=== PATIENT | female | born 1955 | race Two or more races ===

== ENCOUNTER 2017-09-30 13:57 | Emergency (ER) | payer SELFPAY ==
[2017-09-30 14:18] VITALS: BP 138/91; PULSE 94; TEMP 98.2; BMI 37.1
--- NOTE | 2017-09-30 14:58 | PDOC ---
History of Present Illness - General Chief Complaint: Pain Stated Complaint: KNEE PAIN Time Seen by Provider: 09/30/17 14:33 History Source: Patient, Online Content Coordinator Used Exam Limitations: Language Barrier - History of Present Illness Initial Comments: 09/30/17 14:46 pt tripped and fell on left knee today. no dizzyness. Past History - Past Medical History Allergies/Adverse Reactions: Allergies Allergy/AdvReac Type Severity Reaction Status Date / Time No Known Allergies Allergy Verified 09/30/17 14:13 Home Medications: Ambulatory Orders Unobtainable 09/30/17 COPD: No Diabetes: (Prediabetic) HTN: Yes - Suicide/Smoking/Psychosocial Hx Smoking History: Never smoked Have you smoked in the past 12 months: No Information on smoking cessation initiated: No Hx Alcohol Use: No Drug/Substance Use Hx: No Substance Use Type: None Review of Systems - Review of Systems Able to Perform ROS?: Yes Is the patient limited Haitian proficient: Yes Musculoskeletal: Yes: Symptoms Reported *Physical Exam - Vital Signs Last Vital Signs Temp Pulse Resp BP Pulse Ox 98.2 F 94 H 18 138/91 96 09/30/17 14:15 09/30/17 14:15 09/30/17 14:15 09/30/17 14:15 09/30/17 14:15 - Physical Exam General Appearance: Yes: Nourished, Appropriately Dressed HEENT: positive: EOMI, VALENTIN Extremity: positive: Normal Capillary Refill, Normal Inspection, Tender (left knee laterally, medially proximal fibia ) Integumentary: positive: Normal Color, Dry, Warm Neurologic: positive: Fully Oriented, Alert, Normal Mood/Affect, Normal Response , Motor Strength 5/5 ED Treatment Course - RADIOLOGY Radiology Studies Ordered: Category Date Time Status KNEE 3 POS-LEFT [RAD] Stat Radiology 09/30/17 14:39 Ordered Medical Decision Making - Medical Decision Making 09/30/17 14:47 pt fell on left knee, no deformity or swelling LROM due to pain xray is negative will place dheeraj wrap 09/30/17 15:52 *DC/Admit/Observation/Transfer Diagnosis at time of Disposition: Knee contusion Qualifiers: Encounter type: initial encounter Laterality: left Qualified Code(s): S80.02XA - Contusion of left knee, initial encounter - Discharge Dispostion Disposition: HOME Condition at time of disposition: Good - Referrals Referrals: Abdullahi Workman MD [Staff Physician] - - Patient Instructions Printed Discharge Instructions: DI for Contusion Additional Instructions: apply ice every 2hrs for 20 minutes take motrin as needed for pain (over the counter 600mg ibuprofen every 8hrs) follow with the orthopedist for any worsening symptoms - Post Discharge Activity
[2017-09-30] MEDS ORDERED: IBUPROFEN 600 MG TABLET (FP) PO ONE ×2 (14:59→15:03)
== END 2017-09-30 16:29 | disposition home or self-care (01) ==
LOC: JERFT 13:57
DX: M25.562 Pain in left knee (principal); W01.190A Fall on same level from slipping, tripping and stumbling with subsequent striking against furniture, initial encounter; Y93.89 Activity, other specified; Y92.89 Other specified places as the place of occurrence of the external cause; Y99.8 Other external cause status
CPT/HCPCS: 73562-TC-LT-FY; 99281-25